=== PATIENT | male | born 1970 | race Caucasian/White ===

== ENCOUNTER 2019-12-29 10:37 | Emergency (ER) | payer OTHER, SELFPAY ==
--- NOTE | ~2019-12-29 | XR_ITS ---
EXAMINATION: XR hand RT min 3V INDICATION: Right hand pain TECHNIQUE: Three views of the right hand are obtained. COMPARISON: None available FINDINGS: No acute fracture is identified. Deformity of the distal fifth metacarpal is consistent wit h prior fracture. 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 The soft tissues are un remarkable. IMPRESSION: 1. No acute osseous abnormality. Reviewed, dictated and finalized at location A.
[2019-12-29 10:45] VITALS: BP 154/87; PULSE 74; RESP 16; TEMP 37.1; O2SAT 98
--- NOTE | 2019-12-29 10:45 | ED.UPPEXIN ---
HPI - Extremity Injury (Upper) General Chief Complaint: Extremity Injury, Upper Stated Complaint: Left hand injured Time Seen by Provider: 12/29/19 10:53 Source: patient and RN notes reviewed Mode of arrival: ambulatory Limitations: no limitations History of Present Illness HPI narrative: This is a 49 years old male presents to the office for an evaluation of right hand/wrist injury prior arrival. 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 It weighs about 70lbs. Complains of immediate pain and worse when he tried to move his fingers. Denies previous injury to his right hand/wrist. Admits to history of left hand fracture in the past. He tried ice; but no medication by mouth for pain. He is right hand dominated. Related Data Allergies Allergy/AdvReac Type Severity Reaction Status Date / Time No Known Allergies Allergy Verified 12/29/19 10:59 Review of Systems Review of Systems: Narrative: CONSTITUTIONAL: Denies fever ENT: Denies rhinorrhea, congestion, sore throat CARDIOVASCULAR: Denies chest pain, palpitation RESPIRATORY: Denies dyspnea, wheezing, cough GASTROINTESTINAL: Denies abdominal pain, nausea, vomiting SKIN: Denies rash MUSCULOSKELETAL: Reports right hand pain and unable to fingers due to pain NEUROLOGIC: Denies lightheaded/dizziness prior to accident All other systems reviewed are negative, except as documented in HPI. PMFSH Comments At time of signature, I agree with nursing past medical, surgical, social and family history. There is no relevant family history pertinent to the presenting complaint. Exam Narrative: Exam Narrative: GENERAL: This is a well-nourished, well-developed patient, in no apparent distress. CARDIOVASCULAR: Regular rate and rhythm without murmurs, gallops, or rubs. RESPIRATORY: Clear to auscultation. Breath sounds equal bilaterally. No wheezes, rales, or rhonchi. GASTROINTESTINAL: Abdomen soft, non-tender, nondistended. Bowel sounds are active. No hepato-splenomegaly, or palpable masses. No guarding. SKIN: warm, intact with no suspicious lesions or rash, good texture and turgor. NEURO: awake, alert, and oriented to person, place and time. There were no obvious focal neurologic abnormalities. Steady gait EXTREMITIES:The dorsum of the hand is slightly swollen and tender. The skin is intact. Flexion and extension of the fingers is limited secondary to pain. The right wrist is with obvious asymmetry or deformity when compared to the left wrist. NO surface trauma, open wounds, swelling or obvious deformity. No overlying erythema or warmth. ROM is limited secondary to pain. Motor/sensory function of ulnar, radial, median nerves intact. Ulnar and radial pulses intact. Cap refills brisk. [place] Coma Scale Eye Opening: Spontaneous 4 [place] Coma Scale Motor: Obeys Commands 6 [place] Coma Scale Verbal: Oriented 5 MDM - Extremity Injury (Upper) MDM Narrative Medical decision making narrative: I reviewed x-ray results word by word from radiologist report to patient. He was in denial. Stated, he never had right hand broken in the past, he said this is wrong , how could he has a broken hand and not remember it. He was adamant that Xray is wrong because it was his left hand that was broken and not his right hand. He wants to go somewhere for second opinion. As I went through a treatment plan with the patient, he requests for a work restriction. I told the patient that I spoke to his boss who called earlier requesting for his employee to be seen here. I told him that we are not work-comp clinic and will not do drug screen or work restriction or work related-paperwork. Patient became very irritated and upset; so he pushes his way out before the nurse is able to give him discharge paperwork. Differential Diagnosis Differential diagnosis: Likely sprain and strain of wrist, fracture of wrist and fracture of hand Imaging Data Attestation: I
[2019-12-29] MEDS: ACETAMINOPHEN 325 MG TABLET 650 MG PO (11:12)
[2019-12-29] MEDS: IBUPROFEN 600 MG TABLET PO (11:13)
== END 2019-12-29 11:28 | disposition home or self-care (01) ==
PROVIDERS: Emergency Provider Nurse Practitioner; PCP Family Medicine
DX: S63.91XA Sprain of unspecified part of right wrist and hand, initial encounter (principal); W20.8XXA Other cause of strike by thrown, projected or falling object, initial encounter; Y99.0 Civilian activity done for income or pay; I10 Essential (primary) hypertension
CPT/HCPCS: 73130; 99213; A9270; G0463